=== PATIENT | female | born 1975 | race Hispanic/Latino ===

== ENCOUNTER 2019-09-09 08:26 | Day surgery (SDC) | payer BC ==
[2019-09-04 10:46] LABS: Hematocrit 37.9 % (36.0-45.0); Lymphocytes % 25.4 % (15.3-44.8); MPV 8.4 fL (7.6-11.3); RBC Red Blood Cell Count 4.34 M/uL (3.86-4.86)
[2019-09-04 10:48] LABS: Urine Appearance CLEAR; Urine Bilirubin NEGATIVE (NEG); Urine Blood NEGATIVE (NEG); Urine Color YELLOW; Urine Glucose NEGATIVE (NEG); Urine Protein NEGATIVE (NEG); Urine pH 6.5 (5.0-7.0)
[2019-09-04 10:50] LABS: Urine Microscopic Reflex NO UMIC
[~2019-09-09 08:26] MED LIST: Ringers Lactate 1,000 ML IV SCH; SCOPOLAMINE HYDROBROMIDE PATCH TD ONE
--- OUTSIDE RECORDS SUMMARY | 2019-09-09 08:28 | XMS REPORT ---
:1975 [facility] Address [address] [place] [address] Dr. Landry[address] [place] [id number] Care Team Providers Name Role Phone DR ANDREW PASCAL Unavailable Unavailable Problems This patient has no known problems. Allergies, Adverse Reactions, Alerts This patient has no known allergies or adverse reactions. Medications This patient has no known medications. Encounters Start End Encounter Admission Attending Care Care Encounter Date/Time Date/Time Type Type Clinicians Facility Department ID 2018-08-24 2018-08-24 Outpatient C MARIA G PASCAL [facility] [id number] 04:21:00 06:15:00 ANDREW Results Test Description Test Time Test Comments Text Results Atomic Results Result Comments URINE MONOCLONALFB 2018-08-24 05:27:00 Test Item Value Reference Range Comments PREG UR (test code=PGU) NEGATIVE NEGATIVE
[2019-09-09 08:45] LABS: Specific Gravity 1.025 (1.005-1.030)
[2019-09-09] MEDS ORDERED: Ringers Lactate 1,000 ML IV ONE ×4 (08:57→14:28)
[2019-09-09] MEDS ORDERED: SCOPOLAMINE HYDROBROMIDE PATCH TD ONE (08:57)
[2019-09-09] MEDS ORDERED: CEFAZOLIN/SWI 1gm 1 GM/10 ML SYR ONE (08:58)
[2019-09-09] MEDS ORDERED: CEFAZOLIN/SWI 2gm 2 GM/20 ML SYR ONE (08:58)
[2019-09-09] MEDS: NA CHLORIDE 0.9% IVP SCH ×3 (09:55→10:50)
[2019-09-09] MEDS: CEFAZOLIN IVP SCH ×3 (09:55→10:50)
[2019-09-09] MEDS: BUPIVACAINE 0.25% PF 30 ML VIAL ONE ×2 (09:56→11:09)
[2019-09-09] MEDS ORDERED: MIDAZOLAM HCL 2 MG/2 ML INJ ONE (09:59)
[2019-09-09] MEDS ORDERED: propofoL 200 MG/20 ML VIAL IV ONE (09:59)
[2019-09-09] MEDS ORDERED: GLYCOPYRROLATE 0.2 MG/ML SYR ONE (09:59)
[2019-09-09] MEDS ORDERED: FENTANYL CITR 250 MCG/5 ML ONE (09:59)
[2019-09-09] MEDS ORDERED: dexAMETHasone 10 MG/ML VIAL ONE (09:59)
[2019-09-09] MEDS ORDERED: LIDOCAINE 2% MPF 5 ML VIAL ONE (09:59)
[2019-09-09] MEDS ORDERED: ROCURONIUM 50 MG/5 ML VIAL IV ONE (09:59)
[2019-09-09] MEDS ORDERED: ONDANSETRON 4 MG/2 ML VIAL ONE (10:01)
[2019-09-09] MEDS ORDERED: KETOROLAC 30 MG/ML INJ ONE (13:09)
[2019-09-09] MEDS: HYDROMORPHONE HCL 1 MG/ML INJ ONE ×2 (14:18→14:23)
[2019-09-09] MEDS ORDERED: HYDROCODONE/APAP 5/325 MG TAB ONE (15:18)
[2019-09-09 16:54] VITALS: BP 153/83; TEMP 98.1; O2SAT 98
[2019-09-09] MEDS ORDERED: NA CHLORIDE 0.9% 500 ML ONE (17:29)
--- NOTE | 2019-09-23 09:44 | OP ---
Date of Procedure: 09/09/2019 Surgeon: Cece Vela MD Concession Attendant: Jessica Murry. Preoperative Diagnoses: Menorrhagia and dysmenorrhea, recurrent last the ablation. Postoperative Diagnoses: Menorrhagia and dysmenorrhea, recurrent last the ablation. Procedures Performed: Total laparoscopic hysterectomy, bilateral salpingectomy, lyses of adhesion, r ight ovarian cystectomy, and cystoscopy. Estimated Blood Loss: Minimal. Anesthesia: General endotracheal. Specimens: Uterus, tubes, and right ovarian cyst. Complications: No complications. Drains: Beebe catheter. Condition: Stable. Findings: About 2-3 cm right ovarian cyst and adhesions of the omentum to the anterior abdominal wal l and dense adhesions of the bladder, tube, uterus. The lyses of adhesions were released . Description Of Procedure: After informed consent, the patient was taken back to OR, placed in a supi ne fashion on operating table. General anesthesia given. She was placed in a dorsal lithotomy posit ion. 3 g of Ancef was given. SCDs were started. Abdomen, vulva, vagina and perineum were prepped a nd draped in a sterile fashion. Beebe was placed to drain the bladder and attached to cysto tubing f or retrograde filling. Speculum placed to expose the cervix. Anterior lip grasped with 2 Allis clam ps. The sound was placed to find the uterine cavity, the endometrial cavity. Once this was done, th e diagnostic vaginal manipulator was introduced and fixed in place with the speculum was r emoved. Allis clamps were removed. This area was draped. 1 cm infraumbilical incision was made with the scalpel using the open laparoscopy technique. The fas rishi was incised. She had abdominoplasties, so permanent sutures were encountered. These were cut, m ultiple layers of fascia were cut before getting into the peritoneal cavity. Once the scope was intr oduced, there were omental adhesions run in front of the trocar placement, a 5 mm left low er quadrant and right lower quadrant ports were placed under direct vision after injecting Marcaine a t the fascia and the skin. All were placed. The adhesions were taken down with the help of the LigaSure and systematically with push-spread technique making windows and the suprapubic 10-po rt was placed without any problems. The abdominal fascial closure with the fascia more sc ar and the slightly difficult to interpret. Once this was penetrated, no problems were encountered. On observation, there were dense adhesions of the bladder to the lower segment of the uterus. There were some omental adhesions to the lateral wall as well. All these were taken down with sharp dissec tion. Then, the peritoneum was raised below the level of the round ligament and the peritoneal windo w was opened up, creating a bladder flap, however, coming to the bladder that bladder had to be filled and drained to yaakov its borders and dissection was performed on the anterior vaginal wal l at the level of the vaginal cuff to open the bladder. A sharp dissection was performed to take the bladder adhesions down. Once the space behind adhesions was approached from the left side and then on the right side and join, then the adhesions of the bladder in the midline were taken down sharply with scissors as well as LigaSure. Once this was done, the bladder was reflected inferiorly and the vaginal wall was freed. Then, hysterectomy was started. The mesosalpinx was taken down, tube removed and utero-ovarian ligament, round ligament, broad ligame nt were all taken down, posterior leaf to the left uterosacral then broad ligament was taken down to skeletonize the vessels. On the right side, similar dissection was performed taking down the mesosal pinx tube, utero-ovarian ligament, round ligament, and the posterior broad ligament to the uterosacra l on the right side. Both ureters were identified from the pelvic brim to the ureteric tunnel and th ere was no anatomical distortion. There was no evidence of any endometriosis. Once the vessels were skeletonized on both sides, the vessels were taken medial to the circumference of the cup. Windows were created medial to the vessels and then bipolar basket tip was used first an d then the LigaSure to take down the vessels on the right side of the cardinal ligaments were taken d own on the opposite side. Resection was performed. Once the uterus was ready for colpotomy, monopol ar hook blade was used for circumferential colpotomy and the specimen pulled through the v agina. The remnants of the tube were removed, right ovarian cyst was removed with the LigaSure. The ovaries appeared to be viable and normal. There were left alone. Thorough irrigation suction probe was performed. Hemostasis secured at the vaginal cuff. The closur e with 0 PDS 2 simple stitches on both sides of the angle, then 3 [id number]-[id number] in the middle for excellent closure and support. Once this was done, thorough irrigation and suction was performed. N o evidence of electrical, mechanical, or thermal injury to the ureters or the bowel. Ports were oliva portia under direct vision. Gas was desufflated. Fascia at the umbilicus closed with the tag sutures, tied to each other at both ends and then suprapubic incision closed with the help of simple 0-Vicryl stitch at the fascial level. All the skin incisions closed with the help of 4-0 Monocryl. Instrumen t, needle, and sponge counts were correct at the end of the case. I performed a cystoscopy after rem oving the Beebe catheter to look at both ureteric orifices, there were strong jets of urine from both sides and there was no evidence of any bladder injury while taking the adhesions down. So, the blad arben was drained and normal catheterization was needed. She was recovered from anesthesia and taken t o PACU in stable condition. EBL was minimal. TYLER/KIMMIE Voice ID: [id number] Report ID: [id number]
== END 2019-09-09 18:27 | disposition home or self-care (01) ==
LOC: OR 08:26
PROVIDERS: ATTEND Obstetrics & Gynecology
PROC: 0UT74ZZ Resection of Bilateral Fallopian Tubes, Percutaneous Endoscopic Approach (ICD-10-PCS; 2019-09-09)
PROC: 0UB04ZZ Excision of Right Ovary, Percutaneous Endoscopic Approach (ICD-10-PCS; 2019-09-09)
PROC: 0TNB4ZZ Release Bladder, Percutaneous Endoscopic Approach (ICD-10-PCS; 2019-09-09)
PROC: 0UT94ZZ Resection of Uterus, Percutaneous Endoscopic Approach (ICD-10-PCS; principal; 2019-09-09 10:00)
DX: N92.1 Excessive and frequent menstruation with irregular cycle (principal); N94.5 Secondary dysmenorrhea; D25.9 Leiomyoma of uterus, unspecified; N80.0 Endometriosis of uterus; N83.11 Corpus luteum cyst of right ovary; N32.89 Other specified disorders of bladder; K66.0 Peritoneal adhesions (postprocedural) (postinfection); N83.8 Other noninflammatory disorders of ovary, fallopian tube and broad ligament; N70.11 Chronic salpingitis; D50.0 Iron deficiency anemia secondary to blood loss (chronic); K21.9 Gastro-esophageal reflux disease without esophagitis
CPT/HCPCS: 85025; 36415; 86900; 86850; 81025; 86901; 82947 ×2; 88307; 81003; 58571; 58662; 53899; J2704; J2250; J3010; J1100; J1170; J0690 ×2; J7120 ×4; J7040; J2405

== ENCOUNTER 2021-06-12 13:31 | Inpatient (IN) | payer OTHER ==
[2021-06-12 13:59] LABS: Absolute Lymphocytes (CBC) 2.5 K/uL (0.7-4.9); Basophils % 0.6 % (0-1.3); Hematocrit 36.5 % (36.0-45.0); Lymphocytes % 20.4 % (15.3-44.8); RBC Red Blood Cell Count 4.46 M/uL (3.86-4.86)
[2021-06-12 14:08] LABS: Protime INR 0.95
[2021-06-12] MEDS ORDERED: NITROGLYCERIN 0.4 MG/TAB SL ONE (14:10)
[2021-06-12] MEDS ORDERED: METOPROLOL TARTRATE 5 MG/5 ML INJ IV ONE (14:17)
--- NOTE | 2021-06-12 14:22 | RAD REPORT ---
EXAM DESCRIPTION: RAD - Chest Single View - 06/12/2021 2:04 pm CLINICAL HISTORY: CHEST PAIN COMPARISON: January 2016 TECHNIQUE: AP portable chest image was obtained 06/12/2021 2:04 pm . FINDINGS: Lungs are clear. Interstitial pattern matches comparison. Heart and vasculature are normal . No measurable pleural effusion and no pneumothorax. No acute bony abnormality seen. No acute aortic findings suspected. IMPRESSION: No acute cardiopulmonary process. No significant change from comparison study.
[2021-06-12 14:34] LABS: ALT/SGPT 36 U/L (12-78); AST/SGOT 23 U/L (15-37); Albumin 3.9 g/dL (3.4-5.0); Alkaline Phosphatase 131 U/L (45-117); BUN Blood Urea Nitrogen 15 mg/dL (7-18); Bicarbonate 23 mmol/L (21-32); Bilirubin Direct 0.1 mg/dL (0-0.2); Bilirubin Total 0.4 mg/dL (0.2-1.0); Glucose Level 223 mg/dL (74-106); Magnesium 1.7 mg/dL (1.8-2.4); NT PRO-BNP 40 pg/mL (<125); Potassium 3.3 mmol/L (3.5-5.1); Protein, Total 7.5 g/dL (6.4-8.2); Sodium Level 138 mmol/L (136-145); Troponin (Emerg Dept Use Only) < 0.02 ng/mL (0.0-0.045)
--- NOTE | 2021-06-12 16:33 | RAD REPORT ---
EXAM DESCRIPTION: CT - Chest For Pe Angio - 06/12/2021 4:17 pm CLINICAL HISTORY: CHEST PAIN COMPARISON: Chest Single View dated 06/12/2021 TECHNIQUE: Dynamically enhanced 3 mm thick images of the chest were obtained during administration o f approximately 150mL Isovue 370 IV contrast. Coronal and oblique MIP reconstruction images were gene rated and reviewed. Exam utilizes a protocol to evaluate the pulmonary arterial tree. All CT scans are performed using dose optimization technique as appropriate and may include automated exposure control or mA/KV adjustment according to patient size. FINDINGS: No pulmonary emboli are identified. The aorta as imaged shows no acute or suspicious finding. No pericardial thickening or effusion. No infiltrate or mass in the lung parenchyma. No pleural effusion or pleural thickening. No mediastinal or hilar suspicious masses. No chest wall masses or abnormal axillary lymphadenopathy. IMPRESSION: No pulmonary emboli identified. Lung haq are clear. No other significant or suspicious findings.
[2021-06-12] MEDS ORDERED: POTASSIUM 25 MEQ EFFERV TAB ONE (16:57)
[2021-06-12] MEDS ORDERED: MAGNESIUM SULFATE 1 gm IVPB 1 GM/100 ML BAG IV ONE (16:58)
--- NOTE | 2021-06-12 17:06 | EDPHYS ---
Physician Documentation [facility] Name: Josefa Michel Age: 45 yrs Sex: Female : 1975 Arrival Date: 06/12/2021 Time: 13:35 Bed 13 Private MD: ED Physician Dennis Martin HPI: 06/12 13:39 This 45 yrs old Female presents to ER via EMS with complaints of Chest pain. pm1 13:39 The patient or guardian reports chest pain that is located primarily in the left pm1 breast. Onset: 1 hour(s) ago. The pain radiates to the left shoulder, left neck, left back. Associated signs and symptoms: Pertinent positives: diaphoresis, nausea, vomiting, Pertinent negatives: abdominal pain, shortness of breath. The chest pain is described as a pressure. Duration: The patient or guardian reports a single episode, that is still ongoing. Modifying factors: The symptoms are alleviated by NTG, Mildly by EMS the symptoms are aggravated by nothing. Severity of pain: in the emergency department the pain is a 5 / 10. EMS care prior to arrival includes: aspirin, nitroglycerin, x 1, with partial relief of the chest pain. The patient has not experienced similar symptoms in the past. The patient has not recently seen a physician. Historical: - Allergies: 13:47 No Known Allergies; tr6 - Home Meds: 13:47 Metformin Oral [Active]; Zoloft Oral [Active]; Keflex Oral [Active]; tr6 - PSHx: 13:47 None; tr6 - Immunization history:: Adult Immunizations up to date, Client reports receiving the 2nd dose of the Covid vaccine. - Social history:: Smoking status: unknown. ROS: 13:39 Constitutional: Negative for fever, chills, and weight loss. pm1 13:39 Back: Negative for injury and pain, MS/Extremity: Negative for injury and deformity, Skin: Negative for injury, rash, and discoloration, Neuro: Negative for headache, weakness, numbness, tingling, and seizure. 13:39 Cardiovascular: Positive for chest pain, palpitations, Negative for edema. 13:39 Respiratory: Negative for cough, shortness of breath. 13:39 Abdomen/GI: Positive for nausea and vomiting, Negative for abdominal pain, diarrhea, constipation. 13:39 All other systems are negative. Exam: 13:39 Constitutional: This is a well developed, well nourished patient who is awake, alert, pm1 and in no acute distress. Head/Face: Normocephalic, atraumatic. Chest/axilla: Normal chest wall appearance and motion. Nontender with no deformity. No lesions are appreciated. 13:39 Skin: Warm, dry with normal turgor. Normal color with no rashes, no lesions, and no evidence of cellulitis. MS/ Extremity: Pulses equal, no cyanosis. Neurovascular intact. Full, normal range of motion. 13:39 Cardiovascular: Exam negative for acute changes, Rate: tachycardic, Rhythm: regular, Pulses: no pulse deficits are appreciated, Heart sounds: normal, Edema: is not appreciated. 13:39 Respiratory: Exam negative for acute changes, respiratory distress, shortness of breath, Breath sounds: are clear throughout. 13:39 Abdomen/GI: Inspection: obese Palpation: abdomen is soft and non-tender, in all quadrants. 13:39 Neuro: Exam negative for acute changes, Orientation: is normal, Mentation: is normal, Motor: is normal, moves all fours. Vital Signs: 13:41 BP 185 / 84; Pulse 115; Resp 18; Temp 98.8(O); Pulse Ox 100% on R/A; Pain 5/10; tr6 13:47 Weight 101.6 kg; Height 5 ft. 1 in. (154.94 cm); tr6 13:57 BP 146 / 85; Pulse 96; Resp 20; Pulse Ox 99% ; tr6 14:00 BP 131 / 79; Pulse 88; Resp 18; Pulse Ox 98% on R/A; tr6 15:00 BP 125 / 68; Pulse 84; Resp 18; Pulse Ox 99% on R/A; tr6 13:47 Body Mass Index 42.32 (101.60 kg, 154.94 cm) tr6 MDM: 13:37 Patient medically screened. pm1 17:04 Data reviewed: vital signs. Data interpreted: Pulse oximetry: on room air is 99 %. pm1 Interpretation: normal. Counseling: I had a detailed discussion with the patient and/or guardian regarding: the historical points, exam findings, and any diagnostic results supporting the discharge/admit diagnosis, lab results, radiology results, the need for further work-up and treatment in the hospital. 17:08 Physician consultation: Louis Arvizu MD regarding admission, patient's condition, and pm1 will see patient tomorrow, Serial cardiac enzymes, ASA 81 mg PO daily, metoprolol 25 mg PO BID. No cardiology consultation at the moment, will evaluate the patient first. 06/12 13:36 Order name: Basic Metabolic Panel; Complete Time: 15:37 tr6 06/12 13:36 Order name: CBC with Diff; Complete Time: 14:32 tr6 06/12 13:36 Order name: LFT's; Complete Time: 15:37 tr6 06/12 13:36 Order name: Magnesium; Complete Time: 15:37 tr6 06/12 13:36 Order name: NT PRO-BNP; Complete Time: 15:37 tr6 06/12 13:36 Order name: PT-INR; Complete Time: 14:32 tr6 06/12 13:36 Order name: Troponin (emerg Dept Use Only); Complete Time: 15:37 tr6 06/12 13:36 Order name: XRAY Chest (1 view); Complete Time: 14:32 tr6 06/12 13:54 Order name: Thyroid Stimulating Hormone; Complete Time: 15:37 EDMS 06/12 14:04 Order name: Glucose, Ancillary Testing EDWI 06/12 14:04 Order name: Glucose, Ancillary Testing; Complete Time: 14:32 EDMS 06/12 18:04 Order name: SARS-COV-2 RT PCR; Complete Time: 18:10 EDMS 06/12 13:36 Order name: EKG; Complete Time: 13:37 tr6 06/12 13:36 Order name: Cardiac monitoring; Complete Time: 13:46 tr6 06/12 13:36 Order name: EKG - Nurse/Tech; Complete Time: 13:46 tr6 06/12 13:36 Order name: IV Saline Lock; Complete Time: 13:41 tr6 06/12 13:36 Order name: Labs collected and sent; Complete Time: 13:46 tr6 06/12 13:36 Order name: O2 Per Protocol; Complete Time: 13:46 tr6 06/12 13:36 Order name: O2 Sat Monitoring; Complete Time: 13:46 tr6 06/12 15:38 Order name: CT Chest For PE Angio; Complete Time: 16:57 pm1 Administered Medications: 13:54 Drug: Nitroglycerin 0.4 mg Route: Sublingual; tr6 14:12 Follow up: Response: Pain is decreased tr6 13:58 Drug: Metoprolol 5 mg Route: IVP; Site: left antecubital; tr6 14:12 Follow up: Response: No adverse reaction tr6 16:39 Drug: Potassium Effervescent Tablet 50 mEq Route: PO; oh 19:53 Follow up: Response: No adverse reaction bs2 16:40 Drug: Magnesium Sulfate 1 grams Route: IVPB; Infused Over: 1 hrs; Site: right oh antecubital; 19:53 Follow up: IV Status: Completed infusion bs2 Disposition Summary: 06/12/21 17:05 Hospitalization Ordered Hospitalization Status: Observation pm1 Provider: Louis Arvizu pm1 Location: Telemetry/MedSurg (observation) pm1 Condition: Stable pm1 Problem: new pm1 Symptoms: have improved pm1 Bed/Room Type: Standard pm1 Room Assignment: 229(06/12/21 18:55) tt3 Diagnosis - Chest pain, unspecified pm1 Forms: - Medication Reconciliation Form pm1 - SBAR form pm1 Addendum: 06/14/2021 10:06 Co-signature as Attending Physician, Dennis Martin MD I agree with the assessment and k dr plan of care. Signatures: Dispatcher [employer] EDMS Dennis Martin MD MD [facility] Mac Enriquez NP SHREDDER TENDER PEAT pm1 Yong Fragoso tt3 Sulma Georges RN RN tr6 Dante Enrique RN RN oh Smith, Bridget RN bs2 Corrections: (The following items were deleted from the chart) 06/12 13:54 13:44 THYROID STIMULAT HORMONE+C.LAB.BRZ ordered. EDMS EDMS 17:14 16:15 CORONAVIRUS+MR.LAB.BRZ ordered. EDMS EDMS 18:55 17:05 pm1 tt3
--- NOTE | 2021-06-12 17:06 | ER ---
[facility]urse's Notes [facility] Name: Josefa Michel Age: 45 yrs Sex: Female : 1975 Arrival Date: 06/12/2021 Time: 13:35 Bed 13 Private MD: Diagnosis: Chest pain, unspecified Presentation: 06/12 13:35 Chief complaint: EMS states: CP radiating to left shoulder, +nausea. pt received 324 tr6 ASA, 0.4 NTG, and zofran en route. Coronavirus screen: At this time, unable to obtain information related to travel outside the [place] Ebola Screen: No symptoms or risks identified at this time. Initial Sepsis Screen: Does the patient meet any 2 criteria? No. Patient's initial sepsis screen is negative. Does the patient have a suspected source of infection? No. Patient's initial sepsis screen is negative. Risk Assessment: Do you want to hurt yourself or someone else? Patient reports no desire to harm self or others. 13:35 Method Of Arrival: EMS: [facility] tr6 13:41 Acuity: DAXA 3 tr6 13:47 Onset of symptoms was June 12, 2021. tr6 Triage Assessment: 13:47 General: Appears uncomfortable, obese, Behavior is cooperative, appropriate for age, tr6 anxious. Pain: Complains of pain in chest Pain radiates to left shoulder. EENT: No deficits noted. Neuro: No deficits noted. Cardiovascular: Reports chest pain, diaphoresis, nausea, palpitations, vomiting, Patient's skin is warm and dry. Rhythm is regular. Respiratory: No deficits noted. GI: No deficits noted. : No deficits noted. Derm: No deficits noted. Musculoskeletal: No deficits noted. Historical: - Allergies: 13:47 No Known Allergies; tr6 - Home Meds: 13:47 Metformin Oral [Active]; Zoloft Oral [Active]; Keflex Oral [Active]; tr6 - PSHx: 13:47 None; tr6 - Immunization history:: Adult Immunizations up to date, Client reports receiving the 2nd dose of the Covid vaccine. - Social history:: Smoking status: unknown. Screenin:35 Abuse screen: Denies threats or abuse. Denies injuries from another. Nutritional tr6 screening: No deficits noted. Tuberculosis screening: No symptoms or risk factors identified. Fall Risk None identified. Assessment: 13:50 Reassessment: daughter at bedside. tr6 14:05 Reassessment: pt reports that her CP has improved greatly after 2 NTG (1 in ambulance tr6 and 1 given in ED). pt will not like an additional dose at this time, but will let this RN know. Will continue to monitor. Patient states symptoms have improved. 14:11 Cardiovascular: Rhythm is sinus rhythm. tr6 15:15 Reassessment: Patient and/or family updated on plan of care and expected duration. Pain tr6 level reassessed. Patient is alert, oriented x 3, equal unlabored respirations, skin warm/dry/pink. 15:37 Reassessment: Patient and/or family updated on plan of care and expected duration. Pain tr6 level reassessed. Patient is alert, oriented x 3, equal unlabored respirations, skin warm/dry/pink. Patient states feeling better. Patient states symptoms have improved. Vital Signs: 13:41 BP 185 / 84; Pulse 115; Resp 18; Temp 98.8(O); Pulse Ox 100% on R/A; Pain 5/10; tr6 13:47 Weight 101.6 kg; Height 5 ft. 1 in. (154.94 cm); tr6 13:57 BP 146 / 85; Pulse 96; Resp 20; Pulse Ox 99% ; tr6 14:00 BP 131 / 79; Pulse 88; Resp 18; Pulse Ox 98% on R/A; tr6 15:00 BP 125 / 68; Pulse 84; Resp 18; Pulse Ox 99% on R/A; tr6 13:47 Body Mass Index 42.32 (101.60 kg, 154.94 cm) tr6 Vitals: 15:00 Cardiac Rhythm Assessment Regular Sinus rhythm. tr6 ED Course: 13:35 Patient arrived in ED. tr6 13:35 Sulma Georges, RN is Primary Nurse. tr6 13:35 Patient has correct armband on for positive identification. Placed in gown. Bed in low tr6 position. Call light in reach. Side rails up X 1. pvc monitor on. Pulse ox on. NIBP on. Door closed. Noise minimized. Visitors limited. Lights dimmed. Moved to private room. Diet: Patient is NPO. 13:37 Mac Enriquez NP is PHCP. pm1 13:37 Dennis Martin MD is Attending Physician. pm1 13:43 Triage completed. tr6 13:45 Initial lab(s) drawn, by me, sent to lab. EKG done, by ED staff, reviewed by Dennis Martin MD. 13:50 Resting quietly. Awaiting lab results. tr6 13:50 Patient placed in an exam room, on a stretcher, on library monitor, on pulse oximetry, tr6 Emesis basin given. EKG completed in triage. Results shown to MD. 13:50 No provider procedures requiring assistance completed. Maintain EMS IV. Dressing tr6 intact. Good blood return noted. Site clean \T\ dry. Gauge \T\ site: 20 L AC. Patient maintains SpO2 saturation greater than 95% on room air. 14:04 XRAY Chest (1 view) In Process Unspecified. EDMS 16:17 CT Chest For PE Angio In Process Unspecified. EDMS 17:04 Louis Arvizu MD is Hospitalizing Provider. pm1 17:21 Dante Enrique, NARESH is Primary Nurse. bp 19:53 Patient admitted, IV remains in place. bs2 Administered Medications: 13:54 Drug: Nitroglycerin 0.4 mg Route: Sublingual; tr6 14:12 Follow up: Response: Pain is decreased tr6 13:58 Drug: Metoprolol 5 mg Route: IVP; Site: left antecubital; tr6 14:12 Follow up: Response: No adverse reaction tr6 16:39 Drug: Potassium Effervescent Tablet 50 mEq Route: PO; oh 19:53 Follow up: Response: No adverse reaction bs2 16:40 Drug: Magnesium Sulfate 1 grams Route: IVPB; Infused Over: 1 hrs; Site: right oh antecubital; 19:53 Follow up: IV Status: Completed infusion bs2 Outcome: 17:05 Decision to Hospitalize by Provider. pm1 19:52 Admitted to Med/surg accompanied by tech, via wheelchair, room 229, with chart, Report bs2 called to Bandar INFANTE 19:52 Condition: improved 19:52 Instructed on the need for admit. 20:16 Patient left the ED. kc4 Signatures: Dispatcher [employer] EDMS Mac Enriquez NP GEOLOGY SCIENTIST pm1 Brown [place] RN RN Janet Johns kj1 Sulma Georges RN RN tr6 Luciana Stallworth RN RN bs2 Jaimee Kidd kc4 aDnte Enrique RN RN oh Corrections: (The following items were deleted from the chart) 13:43 13:35 Chief complaint: EMS states: CP radiating to left shoulder, +nausea tr6 tr6
[2021-06-12] MEDS ORDERED: ONDANSETRON 4 MG/2 ML VIAL IV PRN (18:17)
[2021-06-12] MEDS: METOPROLOL TAR 25 MG TAB PO SCH (18:17)
[2021-06-12] MEDS ORDERED: MORPHINE 4 MG/ML SYR IV PRN (18:17)
[2021-06-12 18:43] VITALS: BMI 42.1
[2021-06-12] MEDS ORDERED: METOPROLOL TAR 25 MG TAB ONE (19:10)
[2021-06-13] MEDS: METOPROLOL TAR 25 MG TAB PO SCH ×2 (05:34→17:13)
[2021-06-13 06:02] LABS: Absolute Lymphocytes (CBC) 2.4 K/uL (0.7-4.9); Basophils % 0.9 % (0-1.3); Hematocrit 35.7 % (36.0-45.0); Lymphocytes % 27.1 % (15.3-44.8); MPV 8.2 fL (7.6-11.3); RBC Red Blood Cell Count 4.31 M/uL (3.86-4.86)
[2021-06-13 06:14] LABS: BUN Blood Urea Nitrogen 14 mg/dL (7-18); Bicarbonate 27 mmol/L (21-32); Glucose Level 144 mg/dL (74-106); Potassium 4.1 mmol/L (3.5-5.1); Sodium Level 140 mmol/L (136-145)
[2021-06-13] MEDS ORDERED: D50W 25 GM/50 ML SYRINGE IV PRN (07:56)
[2021-06-13] MEDS ORDERED: GLUCAGON 1 MG/VIAL IM PRN (07:56)
[2021-06-13] MEDS: ASPIRIN EC 81 MG TAB PO SCH (07:58)
[2021-06-13] MEDS ORDERED: SERTRALINE HCL 100 MG TAB PO SCH ×2 (09:00→21:00)
[2021-06-13] MEDS ORDERED: ENOXAPARIN 40 MG/0.4 ML SQ SCH (09:00)
[2021-06-13] MEDS: FLUTICASONE 50MCG NASAL SPRAY NAS SCH ×2 (09:35→20:41)
[2021-06-13] MEDS: PANTOPRAZOLE 40MG TABLET PO SCH (09:36)
--- NOTE | 2021-06-13 09:58 | HP ---
Date of Admission: 06/13/2021 Chief Complaint: Chest pain. History Of Present Illness: This is a 45-year-old very pleasant female patient who was doing fine in her normal usual state of health until yesterday. She was cooking at home and all of a sudden she started to have feeling of heart racing feeling and she checked her blood pressure. It was 220/115 and pulse rate was 115. She started to have some left-sided precordial area chest pain. She is not able to describe exact nature of the pain, but her pain did radiate to her left scapular region and she had some associated tingling numbness type of feeling in her tongue and she had episode of nausea, vomiting, and sweating associated with this pain. She called ambulance, and she was brought into emergency room. After she was evaluated in the ER, she was admitted to the hospital. The patient received sublingual nitroglycerin, aspirin, and 1 dose of IV metoprolol and her condition has remained stable since that time. She has not had any recurrence of chest pain or any other symptoms since admission. There is no prior history of similar type of symptoms. Allergies: TO PSEUDOEPHEDRINE CAUSING PALPITATION. Medications: Atorvastatin 20 mg daily, fluticasone nasal spray 1 spray each nostril 2 times a day, metformin 500 mg daily, omeprazole 40 mg p.o. daily, and sertraline 150 mg daily. Review of Systems: Cardiovascular: As mentioned above. GI: As mentioned above. All other systems reviewed and negative. Past Medical History: Significant for allergic rhinitis, type 2 diabetes mellitus, mixed hyperlipidemia, iron deficiency anemia. Past Surgical History: Surgery for varicose veins done this year, gastric sleeve surgery in the past, tubal ligation and hysterectomy. Family History: Father with hyperlipidemia and hypertension. Mother with hypertension and hyperlipidemia also. Social History: Negative for smoking and alcohol use. Immunization History: The patient had her first dose of COVID-19 vaccine on December 21, 2020 and second dose on 01/18/2021. Physical Examination: Vital Signs: Last vital signs; temperature 97.7, pulse 56, respiratory rate 18, blood pressure 111/58, oxygen saturation 100% on room air. Height 5 feet 1 inch, weight 223 pounds. General: Awake, alert, oriented, not in distress. HEENT: Head atraumatic, normocephalic. Conjunctivae nonerythematous. Sclerae white. Mouth, no thrush or edema noted. Ears/Nose, no mass, lesion, discharge noted. Neck: Supple. No JVD, lymph nodes, bruit, thyromegaly noted. Lungs: Bilateral good equal air entry. Clear to auscultation. No rhonchi. No rales. Heart: Normal heart sounds, no murmur or gallop. Abdomen: Soft, bowel sounds normal. No guarding, rigidity, tenderness, mass, hepatosplenomegaly, distention, or bruit noted. Extremities: No leg edema. No calf tenderness. Skin: No rash, ulcer, cellulitis. Lymphatics: No lymph node enlargement in neck, supraclavicular, infraclavicular region. Neuro: No focal neurological deficit. Chest: Unremarkable. External Genitalia: Deferred. Rectal: Deferred. Laboratory Data: Yesterday; white count 12.1, hemoglobin 12.2, platelets 287. This morning; white count 9, hemoglobin 11.9, platelets 265. INR 0.95. Yesterday; sodium 138, potassium 3.3, chloride 108, bicarb 23, BUN 15, creatinine 0.69, glucose 223, magnesium 1.7. Liver function tests unremarkable. Troponin less than 0.02 on the first set, second set 0.02, third set 0.03. TSH 2.38. This morning; sodium 140, potassium 4.1, chloride 110, bicarb 27, BUN 14, creatinine 0.56, glucose 140. COVID-19 test negative. Chest x-ray, no acute cardiopulmonary changes. CAT scan of the chest per PE protocol was negative for pulmonary embolism. No acute lung findings. EKG shows sinus tachycardia with nonspecific T-wave changes. Impression: 1. Unstable angina. 2. Type 2 diabetes mellitus. 3. Mixed hyperlipidemia. 4. Iron-deficiency anemia. 5. Allergic rhinitis. Plan: Admit the patient to hospital for further evaluation and management of this problem. The patient is appropriate for inpatient and is expected to spend 2 midnights in hospital. We will continue aspirin and metoprolol per order. We will start her on Lovenox 40 mg subcutaneous injection daily as of this morning. We will increase dose of atorvastatin from 20 mg to 40 mg at bedtime and consult Cardiology. I have called and discussed details with Dr. Mcknight. I have discussed with the patient regarding option of doing cardiac catheterization for further evaluation and management that would be my suggestion to her. She understands and agrees with that and I have discussed details with elementary librarian as well, who will evaluate and help us with further evaluation and management of this problem. We will keep her n.p.o. after midnight and also order echo with Doppler to be done on her tomorrow. Diabetes will be managed with sliding scale insulin at this point. LEVON/MODL Voice ID: [id number] MTDD
[2021-06-13] MEDS: INSULIN -REGULAR HUMAN 50 UNIT/0.5 ML ML SQ SCH ×3 (11:30→20:42)
[2021-06-13] MEDS ORDERED: ATORVASTATIN 40 MG TAB PO SCH (21:00)
[2021-06-14] MEDS: METOPROLOL TAR 25 MG TAB PO SCH (06:18)
[2021-06-14] MEDS: ASPIRIN EC 81 MG TAB PO SCH (06:18)
[2021-06-14] MEDS: INSULIN -REGULAR HUMAN 50 UNIT/0.5 ML ML SQ SCH ×2 (07:30→11:30)
[2021-06-14] MEDS: FLUTICASONE 50MCG NASAL SPRAY NAS SCH (09:00)
[2021-06-14] MEDS: PANTOPRAZOLE 40MG TABLET PO SCH (09:00)
[2021-06-14] MEDS ORDERED: HEPA 1000U/500MLS 1,000 UNIT/500 ML BAG IV ONE (09:13)
--- NOTE | 2021-06-14 09:22 | CON ---
Date of Consultation: 06/13/2021 Reason For Consultation: Unstable angina. History Of Present Illness: Ms. Michel is 45-year-old woman, who has a history of hypertension, dys lipidemia, diabetes, gastroesophageal reflux disease, and depression. with severe hyperte nsion over 200, left facial numbness, left arm numbness and pain, and then chest pain, it radiated to the neck with shortness of breath and diaphoresis but no nausea, vomiting, PND, orthopnea, pedal gunner ma, palpitations, or syncope. Symptoms occurred while she was physically active. Dr. Arvizu and I had determined that she had unstable angina. Potassium 3.3. Chest x-ray was negative. CT was negative . Glucose was 223, potassium 3.3. Troponin was negative. Past Medical History: As stated above. Allergies: NONE. Review of Systems: Negative. Social History: Negative. Family History: Negative. Medications: Include Lipitor, metformin, Zoloft, and Prilosec. Physical Examination: Vital Signs: Stable, afebrile. HEENT: Negative. Neck: Supple with no bruit. Chest: Clear. Cardiac: Revealed a regular rhythm and rate. No murmurs, gallops, or rubs. Abdomen: Benign. Extremities: Revealed no clubbing, cyanosis, or edema. Diagnostic Data: As stated earlier. EKG showed nonspecific changes. Impression And Plan: This is a 45-year-old, admitted diabetes, hypertension, dyslipidemia, and symptoms consistent with unstable angina, although that could certainly be related to hypertensi ve crisis as well. Nevertheless, comfortable with her going to an echocardiogram and I th ink she needs to have a left heart catheterization to define her coronary anatomy. She understands t he risks and the benefits of the procedure and she agreed to proceed. CHRIS/KIMMIE Voice ID: [id number] Report ID: [id number]
[2021-06-14] MEDS ORDERED: NA CHLORIDE 0.9% 500 ML ONE (09:35)
[2021-06-14] MEDS ORDERED: LIDOCAINE 1% 20 ML MDV ONE (10:00)
[2021-06-14] MEDS ORDERED: ATROPINE SULF 1 MG/10 ML SYR IV ONE (10:18)
[2021-06-14] MEDS ORDERED: MIDAZOLAM HCL 2 MG/2 ML INJ ONE ×2 (10:18→10:39)
[2021-06-14] MEDS ORDERED: FENTANYL CITR 100 MCG/2 ML ONE (10:18)
[2021-06-14] MEDS ORDERED: NA CHLORIDE 0.9% 0 ML ONE (10:19)
[2021-06-14 10:33] VITALS: TEMP 97.2
--- NOTE | 2021-06-14 10:45 | OP ---
Date of Procedure: 06/14/2021 Surgeon: Bentley Mcknight MD Slab Installer: Mr. Perez Park. Procedure: Left heart catheterization, selective coronary arteriogram. Indication: Unstable angina. Ms. Michel is 45 years old, patient of Dr. Arvizu, came in with unstabl e angina symptoms. She had diabetes, obesity, hypertension, dyslipidemia, gastroesophageal reflux di sease. Symptoms were pretty classic for unstable angina. Procedure In Detail: Brought to the recyclable materials collector today on 06/14/2021, prepped and draped in the routine sterile fashion. Given Versed and fentanyl for sedation. A 6-Mohawk sheath introduced in the right common femoral artery successfully. Angiography there was normal. Angio-Seal was used to close the case. Diagnostic catheterization was used using Claudy catheter left and right. A JR4 cannulated t he left main and JR4 cannulated the right main. She was found to have normal coronaries. There were no complications. Blood Loss: 5 mL. Anesthesia: Total conscious sedation 45 minutes. Postoperative Diagnosis: Chest pain, normal coronaries. Plan: Plan is for medical therapy for her blood pressure, dyslipidemia, and diabetes. Case will be discussed with Dr. Arvizu. The patient will stay in the hospital for 2 hours after bedrest and she will go home today. CHRIS/KIMMIE Voice ID: [id number] Report ID: [id number]
[2021-06-14 11:15] VITALS: O2SAT 100
[2021-06-14 13:21] VITALS: BP 115/54
--- NOTE | 2021-06-15 06:54 | DS ---
Date of Discharge: 06/14/2021 Physical Examination: HEENT: Unremarkable. Lungs: Clear to auscultation. Heart: Sounds normal. Abdomen: Soft. Bowel sounds normal. No guarding, rigidity, tenderness, or distention. Extremities: No leg edema. Disposition: Discharged to go home. Laboratory Data: Upon admission; white count 12.1, hemoglobin 12.2, platelets 287. Yesterday; repeat white count 9, hemoglobin 11.9, platelets 265. Upon admission; sodium 138, potassium 3.3, chloride 108, bicarb 23, BUN 15, creatinine 0.69, glucose 223. Liver function tests unremarkable. Magnesium 1.7. First troponin less than 0.02, second troponin 0.02, third troponin 0.03. TSH 2.38. Total cholesterol 144, triglyceride 167, LDL 70, HDL 41. Hospital Course: A 45-year-old pleasant female patient, admitted to the hospital with chest pain complaints. Please see dictated H and P for more information. After the patient was evaluated in the emergency room, she was admitted to the hospital. I was concerned about unstable angina. She was given aspirin and nitroglycerin as well as Lopressor in the emergency room. After her admission to the hospital, she remained asymptomatic. Her aspirin and metoprolol were continued. We also started her on Lovenox 40 mg subcutaneous injection daily. Cardiology consultation was obtained from Dr. Mcknight. Echo with doppler was ordered today. Dr. Mcknight took her to cardiac cath and informed me that the patient had normal coronary angiogram and after the procedure, the patient was discharged to go home in stable condition. Discharge Medications And Instructions: 1. Continue all prior home medications. 2. Take metoprolol 25 mg, take 1 tablet by mouth 2 times a day. 3. Follow up at my office this coming or and the patient to call for appointment. Final Diagnoses: 1. Chest pain. 2. Hypertension. 3. Anemia, unspecified. 4. Type 2 diabetes mellitus. 5. Mixed hyperlipidemia. 6. Iron deficiency anemia. 7. Allergic rhinitis. 8. Hypokalemia. LEVON/MODL Voice ID: [id number] Report ID: [id number] [facility]OS[facility]ITALKathia
== END 2021-06-14 15:00 | disposition home or self-care (01) | DRG 287 ==
LOC: ER 13:31 → ERHOLD 17:32 → 2ND 19:14 → OBSVTOIN 06-13 07:56
PROVIDERS: ADMIT Internal Medicine; ATTEND Internal Medicine
PROC: B201YZZ Plain Radiography of Multiple Coronary Arteries using Other Contrast (ICD-10-PCS; principal; 2021-06-14)
DX: R07.9 Chest pain, unspecified (principal); Z68.41 Body mass index [BMI] 40.0-44.9, adult; E87.6 Hypokalemia; I10 Essential (primary) hypertension; D64.9 Anemia, unspecified; E11.9 Type 2 diabetes mellitus without complications; E78.2 Mixed hyperlipidemia; D50.9 Iron deficiency anemia, unspecified; J30.9 Allergic rhinitis, unspecified; E66.9 Obesity, unspecified; Z20.822 Contact with and (suspected) exposure to COVID-19
CPT/HCPCS: 36415; 71045; 71275; 80048; 80061; 80076; 82947; 83735; 83880; 84443; 84484; 85025; 85610; 93005; 93454; 96365; 96366; 96375; 99285; C1760; C1893; G0378; J0583; J1644; J1650; J2250; J3010; J3475; J7040; Q9967; U0003

== ENCOUNTER 2024-07-14 17:45 | Emergency (ER) | payer OTHER, SELFPAY ==
[2024-07-14 18:17] LABS: Absolute Basophils 0.1 K/uL (0-0.5); Absolute Eosinophils 0.1 K/uL (0-0.5); Absolute Lymphocytes (CBC) 2.3 K/uL (0.7-4.9); Absolute Monocytes 0.8 K/uL (0.1-1.3); Absolute Neutrophil 3.8 K/uL (1.8-8.0); Basophils % 0.9 % (0-1.3); Eosinophils % 1.2 % (0-4.4); Hematocrit 33.5 % (36.0-45.0); Lymphocytes % 32.9 % (15.3-44.8); MCH 25.4 pg (27.0-35.0); MCHC 32.9 g/dL (32.0-36.0); MCV 77.3 fL (80-100); MPV 7.6 fL (7.6-11.3); Monocytes % 10.7 % (3.3-12.3); Neutrophils % 54.3 % (41.7-73.7); Nucleated Red Blood Cells % 0.1 % (0-0); Platelets 311 thou/uL (152-406); RBC Red Blood Cell Count 4.33 M/uL (3.86-4.86); Red Cell Distribution Width 17.1 % (12.1-15.2)
--- NOTE | 2024-07-14 18:33 | RAD REPORT ---
EXAMINATION: ONE VIEW CHEST XR CLINICAL INDICATION: Female, 49 years old.CHEST PAIN TECHNIQUE: 1 View, AP supine, X-ray of the chest was performed. [id number]. COMPARISON: 06/12/2021 FINDINGS: Lungs and pleura: Clear lungs. No effusion. Heart and mediastinum: Normal heart size. Unremarkable mediastinal contours. Osseous structures: No acute abnormality. Tubes/lines: None Other: None. IMPRESSION: No acute intrathoracic abnormality.
[2024-07-14 18:38] LABS: ALT/SGPT 36 U/L (13-56); AST/SGOT 21 U/L (15-37); Albumin 3.7 g/dL (3.4-5.0); Alkaline Phosphatase 128 U/L (45-117); Anion Gap 7.6 mEq/L (5.0-15.0); BUN Blood Urea Nitrogen 16 mg/dL (7-18); Bicarbonate 25 mEq/L (21-32); Bilirubin Total 0.3 mg/dL (0.2-1.0); Globulin 3.7 g/dL (2.3-3.5); Glomerular Filtration Rate 95 ml/min (=/>90); Glucose Level 68 mg/dL (74-106); Lipase 34 U/L (13-75); Magnesium 1.8 mg/dL (1.6-2.4); Potassium 3.6 mEq/L (3.5-5.1); Protein, Total 7.4 g/dL (6.4-8.2); Sodium Level 140 mEq/L (136-145); Troponin High Sensitivity 25.8 pg/mL (<58.9)
[2024-07-14 18:42] LABS: Bilirubin Direct < 0.2 mg/dL (0-0.2); Bilirubin Indirect, Calculated 0.1 mg/dL (0.2-0.8)
[2024-07-14 18:50] LABS: Specific Gravity 1.014 (1.005-1.030); Sqamous Epithelial <5 /HPF (None Seen); Urine Bacteria <20 /HPF (<20); Urine Bilirubin NEGATIVE (Negative); Urine Blood Trace (Negative); Urine Clarity Turbid (Clear); Urine Color Light-Yellow (Yellow); Urine Crystals Unidentified Few /HPF (None Seen); Urine Culture Reflex Order NOT NEEDED; Urine Glucose NEGATIVE (Negative); Urine Ketones NEGATIVE (Negative); Urine Micro Reflex YN NO BILL MICROSCOPIC; Urine Mucus Slight /HPF (None Seen); Urine Nitrite NEGATIVE (Negative); Urine Protein NEGATIVE (Negative); Urine RBC <5 /HPF (None Seen); Urine Urobilinogen Normal (Normal); Urine WBC <5 /HPF (<5); Urine WBC Clump Rare /HPF (None Seen); Urine Yeast (Budding) Trace /HPF (None Seen)
[2024-07-14 18:51] LABS: Specific Gravity 1.014 (1.005-1.030)
[2024-07-14] MEDS ORDERED: HYDROCORTISONE SUC 100 MG INJ ONE (19:50)
--- NOTE | 2024-07-14 20:46 | RAD REPORT ---
EXAMINATION: CT ABDOMEN AND PELVIS WITH CONTRAST CLINICAL INDICATION: Female, 49 years old.ABD PAIN TECHNIQUE: CT abdomen and pelvis was performed, after the administration of IV contrast, as per [facility]. Axial, sagittal and coronal reconstructions were obtained. One or more of the following dose reduction techniques were used: Automated exposure control, adjustment of the mA and/o r kV according to patient size, and/or iterative reconstruction. Unless otherwise specified, incidental findings do not require dedicated imaging follow-up. [id number]. COMPARISON: 12/13/2022 FINDINGS: LOWER CHEST: Mild circumferential thickening distal esophagus. LIVER: Normal in size and contour. No focal lesion. GALLBLADDER/BILE DUCT: No biliary ductal dilatation.? PANCREAS: No significant abnormality. SPLEEN: Normal size. No focal lesion. ADRENALS: Normal; no mass. KIDNEYS AND URETERS: Normal size and contour. No hydronephrosis. GASTROINTESTINAL TRACT: Stomach is non-dilated. Small bowel has normal course and caliber. No colonic wall thickening or pericolonic inflammatory changes. Small fat-containing umbilical hernia. Normal appendix. Pamela-en-Y gastric bypass PERITONEUM: No ascites. LYMPH NODES: No lymphadenopathy. ABDOMINAL AORTA AND OTHER VESSELS: Normal caliber aorta and IVC. URINARY BLADDER: Normal contour. REPRODUCTIVE ORGANS: No pathologic process MUSCULOSKELETAL: No acute or suspicious osseous abnormality. ADDITIONAL FINDINGS: None. IMPRESSION: No acute or significant abnormalities seen in the abdomen or pelvis. Normal appendix.
--- NOTE | 2024-07-14 21:56 | EDPHYS ---
Physician Documentation [facility] Name: Josefa Michel Age: 49 yrs Sex: Female : 1975 Arrival Date: 07/14/2024 Time: 17:45 Bed 7 Private MD: ED Physician Bill Mendez HPI: 07/14 18:05 This 49 yrs old Female presents to ER via Ambulatory with complaints of Low cp Blood Sugar. 18:05 Onset: The symptoms/episode began/occurred today. cp 18:05 The patient or guardian reports hypoglycemia, that was potentially precipitated by cp unknown. 18:05 Patient reports recording blood sugar level in the 40's today. Took glucagon to raise cp blood sugar but only worked temporary. Patient prescribed Mounjaro injections for DM and weight loss with past surgical history of gastric sleeve and bypass surgery. Reports last Mounjaro injection was this past Monday and was 2.5 mg. MANAGER PHARMACEUTICAL: 22:09 unknown al5 Historical: - Allergies: 17:50 No Known Allergies; ll1 - PMHx: 17:50 diabetes mellitus ; resolved; Hypercholesterolemia; Hypertensive disorder; ll1 - PSHx: 17:50 gastric sleeve and bypass; ll1 - Immunization history:: Adult Immunizations up to date. - Infectious Disease History:: Denies. - Social history:: Smoking status: Patient denies any tobacco usage or history of. ROS: 18:10 Constitutional: Negative for body aches, chills, fever, poor PO intake, cp 18:10 Eyes: Negative for injury, pain, redness, and discharge, cp 18:10 ENT: Negative for drainage from ear(s), ear pain, sore throat, difficulty swallowing, difficulty handling secretions, 18:10 Cardiovascular: Negative for chest pain, edema, palpitations, 18:10 Respiratory: Negative for cough, shortness of breath, wheezing, 18:10 Abdomen/GI: Negative for abdominal pain, vomiting, diarrhea, constipation, 18:10 : Negative for urinary symptoms, 18:10 Neuro: Negative for altered mental status, dizziness, headache, numbness, syncope, weakness, 18:10 All other systems are negative, Exam: 18:15 Constitutional: The patient appears in no acute distress, alert, awake, cp non-diaphoretic, non-toxic, well developed, well nourished, overweight 18:15 Head/Face: Normocephalic, atraumatic. cp 18:15 Eyes: Periorbital structures: appear normal, Conjunctiva: normal, no exudate, no injection, Sclera: no appreciated abnormality, Lids and lashes: appear normal, bilaterally, 18:15 ENT: External ear(s): are unremarkable, Nose: is normal, Mouth: Lips: moist, Oral mucosa: moist, Posterior pharynx: Airway: no evidence of obstruction, patent, 18:15 Chest/axilla: Inspection: normal, 18:15 Cardiovascular: Rate: normal, Rhythm: regular, 18:15 Respiratory: the patient does not display signs of respiratory distress, Respirations: normal, no use of accessory muscles, no retractions, labored breathing, is not present, Breath sounds: are clear throughout, no decreased breath sounds, no stridor, no wheezing, 18:15 Abdomen/GI: Inspection: abdomen appears normal, Palpation: abdomen is soft and non-tender, in all quadrants, 18:15 Back: CVA tenderness, is absent, 18:15 Skin: cellulitis, is not appreciated, no rash present. 18:15 Neuro: Orientation: to person, place \T\ time. Mentation: is normal, Cerebellar function: is grossly normal, Motor: moves all fours, strength is normal, Sensation: is normal, Gait: is steady, at a normal pace, without difficulty, 18:25 ECG was reviewed by the Attending Physician. cp Vital Signs: 18:01 BP 148 / 70; Pulse 81; Resp 16; Pulse Ox 98% on R/A; iw 19:00 BP 123 / 57; Pulse 71; Resp 16; Temp 98.5; Pulse Ox 96% on R/A; Weight 91.63 kg; Height al5 5 ft. 1 in. ; 20:00 BP 100 / 65; Pulse 66; Resp 17; Pulse Ox 98% on R/A; al5 22:10 BP 136 / 72; Pulse 65; Resp 18; Pulse Ox 98% on R/A; al5 19:00 Body Mass Index 38.17 (91.63 kg, 154.94 cm) al5 MDM: 17:52 Medical Screening Exam initiated cp 19:00 Differential diagnosis: Pearl's syndrome, diabetes insipidus, DKA, hyperglycemia, cp hypoglycemic episode, hypothyroidism, thyroid storm, medication reaction. 21:55 Data reviewed: vital signs, nurses notes, lab test result(s), EKG, radiologic studies, cp CT scan, plain films, and as a result, I will discharge patient. 21:55 Consideration of Admission/Observation Escalation of care including cp admission/observation considered. I considered the following discharge prescriptions or medication management in the emergency department Medications were administered in the Emergency Department. See MAR. Care significantly affected by the following chronic conditions: Diabetes, Hypertension. Counseling: I had a detailed discussion with the patient and/or guardian regarding the historical points, exam findings, and any diagnostic results supporting the discharge/admit diagnosis, lab results, radiology results, the need for outpatient follow up, for definitive care, primary chief substation operator, to return to the emergency department if symptoms worsen or persist or if there are any questions or concerns that arise at home. Response to treatment: the patient's symptoms have markedly improved after treatment, VSS, blood glucose stable. Will discharge to home for continued monitoring. 07/14 18:00 Order name: Basic Metabolic Panel; Complete Time: 18:47 cp 07/14 18:48 Interpretation: Normal except: CL 111; GLUC 68. cp 07/14 18:00 Order name: CBC with Diff; Complete Time: 18:47 cp 10 18:47 Interpretation: Normal except: HGB 11.0; HCT 33.5; MCV 77.3; MCH 25.4; RDW 17.1. cp 07/14 18:00 Order name: LFT's; Complete Time: 18:47 cp 07/14 18:48 Interpretation: Normal except: ALK 128; IBILI, CALC 0.1; GLOB 3.7; A/G 1.0. cp 07/14 18:00 Order name: Magnesium; Complete Time: 18:47 cp 07/14 18:00 Order name: Troponin HS; Complete Time: 18:47 cp 07/14 18:00 Order name: Urinalysis W/Microscopic; Complete Time: 18:51 cp 07/14 18:51 Interpretation: Normal except: UCLA Turbid; UBLD Trace; BYST Trace. cp 07/14 18:00 Order name: Test, Urine; Complete Time: 20:08 cp 07/14 18:00 Order name: Lipase; Complete Time: 18:47 cp 07/14 18:22 Order name: Glucose, Ancillary Testing; Complete Time: 18:27 EDMS 07/14 18:27 Interpretation: Reviewed. cp 07/14 18:50 Order name: Cortisol; Complete Time: 21:59 cp 07/14 18:50 Order name: TSH cp 07/14 18:50 Order name: T3 Free cp 07/14 18:50 Order name: T4,Total cp 07/14 20:38 Order name: Glucose, Ancillary Testing; Complete Time: 20:48 EDMS 07/14 22:04 Order name: Glucose, Ancillary Testing EDMS 07/14 18:00 Order name: XRAY Chest (1 view); Complete Time: 18:47 cp 07/14 18:48 Interpretation: Report review. cp 07/14 20:08 Order name: CT Abd/Pelvis - IV Contrast Only; Complete Time: 20:48 cp 07/14 20:49 Interpretation: Report reviewed. cp 07/14 18:00 Order name: Cardiac monitoring; Complete Time: 18:32 cp 07/14 18:00 Order name: EKG - Nurse/Tech; Complete Time: 18:32 cp 07/14 18:00 Order name: IV Saline Lock; Complete Time: 18:32 cp 07/14 18:00 Order name: Labs collected and sent; Complete Time: 18:32 cp 07/14 18:00 Order name: O2 Per Protocol; Complete Time: 18:32 cp 07/14 18:00 Order name: O2 Sat Monitoring; Complete Time: 18:32 cp 07/14 18:28 Order name: PO challenge: sandwich and drink; Complete Time: 18:32 cp EC:25 Rate is 73 beats/min. Rhythm is regular. IN interval is normal. QRS interval is normal. cp QT interval is normal. T waves are Inverted in lead aVR. Interpreted by me. Reviewed by me. Administered Medications: 20:01 Drug: Solu-CORTEF IVP 100 mg IVP once Route: IVP; Site: right antecubital; al5 20:19 Follow up: Response: No adverse reaction al5 Point of Care Testing: Blood Glucose: 20:27 Blood Glucose: 99 mg/dL; al5 Ranges: Critical Glucose Levels:Adult <50 mg/dl or >400 mg/dl <40 mg/dl or >180 mg/dl Disposition Summary: 07/14/24 21:55 Discharge Ordered Notes: Location: Home cp Problem: new cp Symptoms: have improved cp Condition: Stable cp Diagnosis - Diabetes mellitus due to underlying condition with hypoglycemia cp Followup: cp - With: Private Physician - When: 1 - 2 days - Reason: Recheck today's complaints Discharge Instructions: - Discharge Summary Sheet cp - Hypoglycemia cp - Blood Glucose Monitoring, Adult cp Forms: - Medication Reconciliation Form cp - Antibiotic Education cp - Prescription Opioid Use cp - Patient Portal Instructions cp - Leadership Thank You Letter cp Prescriptions: - glucagon 1 mg/0.2 mL Subcutaneous Auto-Injector - inject 0.5 milligram SUBCUTANEOUS route once may repeat once after 15 minutes cp if no response; 5 unit; Refills: 0, Product Selection Permitted Signatures: Dispatcher [employer] EDMS Bill Conti PA PA cp Sharonda Erwin RN RN ll1 Tasia Goode RN RN al5 Corrections: (The following items were deleted from the chart) 18:01 18:01 BASIC METABOLIC PANEL+C.LAB.BRZ ordered. EDMS EDMS 18:01 18:01 CBC+H.LAB.BRZ ordered. EDMS EDMS 18:01 18:01 HEPATIC FUNCTION+C.LAB.BRZ ordered. EDMS EDMS 18:01 18:01 MAGNESIUM+C.LAB.BRZ ordered. EDMS EDMS 18:01 18:01 Troponin High Sensitivity+C.LAB.BRZ ordered. EDMS EDMS 18:01 18:01 Urinalysis W/Microscopic+U.LAB.BRZ ordered. EDMS EDMS 18:01 18:01 Test, Urine+UC.LAB.BRZ ordered. EDMS EDMS 18:01 18:01 LIPASE+C.LAB.BRZ ordered. EDMS EDMS 18:01 18:01 Chest Single View+RAD.RAD.BRZ ordered. EDMS EDMS 18:37 18:00 Accucheck Blood Glucose ordered. cp db
--- NOTE | 2024-07-14 21:56 | ER ---
Nurse's Notes [facility] Name: Josefa Michel Age: 49 yrs Sex: Female : 1975 Arrival Date: 07/14/2024 Time: 17:45 Bed 7 Private MD: Diagnosis: Diabetes mellitus due to underlying condition with hypoglycemia Presentation: 07/14 17:58 Chief complaint: Patient states: her blood sugar won't stay up , it drops into the 50's iw then 60's and even to 40's , she eats to bring it up into the 120's then it drops again , is on mounjaro for weight loss , last injection was Monday. Coronavirus screen: At this time, the client does not indicate any symptoms associated with coronavirus-19. Ebola Screen: No symptoms or risks identified at this time. Initial Sepsis Screen: Does the patient meet any 2 criteria? No. Patient's initial sepsis screen is negative. Does the patient have a suspected source of infection? No. Patient's initial sepsis screen is negative. Risk Assessment: Do you want to hurt yourself or someone else? Patient reports no desire to harm self or others. Onset of symptoms was July 14, 2024. 17:58 Method Of Arrival: Ambulatory iw 17:58 Acuity: DAXA 3 iw INSURANCE BROKER: 22:09 unknown al5 Historical: - Allergies: 17:50 No Known Allergies; ll1 - PMHx: 17:50 diabetes mellitus ; resolved; Hypercholesterolemia; Hypertensive disorder; ll1 - PSHx: 17:50 gastric sleeve and bypass; ll1 - Immunization history:: Adult Immunizations up to date. - Infectious Disease History:: Denies. - Social history:: Smoking status: Patient denies any tobacco usage or history of. Screenin:55 [facility] ED Fall Risk Assessment (Adult) History of falling in the last 3 months, rs5 including since admission No falls in past 3 months (0 pts) Confusion or Disorientation No (0 pts) Intoxicated or Sedated No (0 pts) Impaired Gait No (0 pts) Mobility Assist Device Used No (0 pt) Altered Elimination No (0 pt) Score/Fall Risk Level 0 - 2 = Low Risk Oriented to surroundings, Maintained a safe environment. Abuse screen: Denies threats or abuse. Nutritional screening: No deficits noted. Tuberculosis screening: No symptoms or risk factors identified. Assessment: 17:55 General: Appears in no apparent distress. comfortable, Behavior is calm, cooperative. rs5 17:55 Pain: Denies pain. Neuro: Level of Consciousness is awake, alert, obeys commands, rs5 Oriented to person, place, time, situation. Cardiovascular: Patient's skin is warm and dry. Respiratory: Airway is patent Respiratory effort is even, unlabored, Respiratory pattern is regular, symmetrical. GI: Abdomen is round non-distended, Abd is soft and non tender X 4 quads. : No signs and/or symptoms were reported regarding the genitourinary system. EENT: No signs and/or symptoms were reported regarding the EENT system. Derm: Skin is intact, Skin is pink, warm \T\ dry. Musculoskeletal: Range of motion: intact in all extremities. 18:29 Reassessment: Patient and/or family updated on plan of care and expected duration. Pain rs5 level reassessed. Patient is alert, oriented x 3, equal unlabored respirations, skin warm/dry/pink. 19:50 General: Appears in no apparent distress. comfortable, Behavior is calm, cooperative. al5 Pain: Denies pain. Neuro: Level of Consciousness is awake, alert, obeys commands, Oriented to person, place, time, situation. Cardiovascular: Patient's skin is warm and dry. Respiratory: Airway is patent Respiratory effort is even, unlabored, Respiratory pattern is regular, symmetrical. GI: Abdomen is round non-distended, Abd is soft and non tender X 4 quads. : No signs and/or symptoms were reported regarding the genitourinary system. EENT: No signs and/or symptoms were reported regarding the EENT system. Derm: Skin is intact, Skin is pink, warm \T\ dry. normal. Musculoskeletal: No signs and/or symptoms reported regarding the musculoskeletal system. 21:18 Reassessment: Patient appears in no apparent distress at this time. No changes from al5 previously documented assessment. Patient and/or family updated on plan of care and expected duration. Pain level reassessed. Patient is alert, oriented x 3, equal unlabored respirations, skin warm/dry/pink. 22:10 Reassessment: Patient appears in no apparent distress at this time. No changes from al5 previously documented assessment. Patient and/or family updated on plan of care and expected duration. Pain level reassessed. Patient is alert, oriented x 3, equal unlabored respirations, skin warm/dry/pink. Vital Signs: 18:01 BP 148 / 70; Pulse 81; Resp 16; Pulse Ox 98% on R/A; iw 19:00 BP 123 / 57; Pulse 71; Resp 16; Temp 98.5; Pulse Ox 96% on R/A; Weight 91.63 kg; Height al5 5 ft. 1 in. ; 20:00 BP 100 / 65; Pulse 66; Resp 17; Pulse Ox 98% on R/A; al5 22:10 BP 136 / 72; Pulse 65; Resp 18; Pulse Ox 98% on R/A; al5 19:00 Body Mass Index 38.17 (91.63 kg, 154.94 cm) al5 ED Course: 17:48 Patient arrived in ED. im 17:50 Arm band placed on Patient placed in an exam room, on a stretcher. ll1 17:52 Bill Conti PA is PHCP. cp 17:52 Bill Mendez MD is Attending Physician. cp 17:55 Patient has correct armband on for positive identification. Bed in low position. Call rs5 light in reach. Side rails up X2. 18:00 Triage completed. iw 18:01 Shane Ulloa, RN is Primary Nurse. rs5 18:01 Inserted saline lock: 20 gauge in right antecubital area, using aseptic technique. rs5 18:01 No provider procedures requiring assistance completed. rs5 18:24 XRAY Chest (1 view) In Process Unspecified. EDMS 20:08 Provided Education on: plan of care, medications. al5 20:33 CT Abd/Pelvis - IV Contrast Only In Process Unspecified. EDMS 22:09 IV discontinued, intact, bleeding controlled, No redness/swelling at site. Pressure al5 dressing applied. Administered Medications: 20:01 Drug: Solu-CORTEF IVP 100 mg IVP once Route: IVP; Site: right antecubital; al5 20:19 Follow up: Response: No adverse reaction al5 Medication: 18:30 VIS not applicable for this client. rs5 Point of Care Testing: Blood Glucose: 20:27 Blood Glucose: 99 mg/dL; al5 Ranges: Outcome: 21:55 Discharge ordered by . cp 22:11 Discharged to home ambulatory, with family, al5 22:11 Condition: good 22:11 Discharge instructions given to patient, family, Instructed on discharge instructions, follow up and referral plans. medication usage, Demonstrated understanding of instructions, follow-up care, medications, Prescriptions given X 22:11 Patient left the ED. al5 Signatures: Dispatcher [employer] EDMS Camilla Srivastava RN RN iw Bill Conti PA PA cp Lewis, Lynsay RN RN ll1 Shane Ulloa RN RN rs5 Sofi Arana Amanda, RN RN al5
[2024-07-14 23:44] LABS: T3 Free 2.61 pg/mL (2.18-3.98); T4,Total 5.8 ug/dL (4.8-13.9); Thyroid Stimulating Hormone 1.88 uIU/mL (0.358-3.740)
[2024-07-15 03:30] VITALS: TEMP 98.5
[2024-07-15 03:36] VITALS: O2SAT 98
[2024-07-15 03:37] VITALS: BP 136/72
--- NOTE | 2024-07-16 12:56 | EKG ---
Test Date: 2024-07-14 Test Time: 18:18:37 [employer]ofer Assistant: CAROLINE MEASUREMENT RESULTS: Intervals: Rate: 73 OH: 142 QRSD: 86 QT: 392 QTc: 431 [place]: P: 51 OH: 142 QRS: 42 T: 36 INTERPRETIVE STATEMENTS: Normal sinus rhythm Normal ECG Compared to ECG 06/12/2021 13:46:20 Sinus tachycardia no longer present ST (T wave) deviation no longer present Electronically Signed On 07-16-24 12:51:03 CDT by Isaias Trujillo
== END 2024-07-14 22:11 | disposition home or self-care (01) ==
LOC: ER 17:45
DX: E11.649 Type 2 diabetes mellitus with hypoglycemia without coma (principal); I10 Essential (primary) hypertension; Z98.84 Bariatric surgery status
CPT/HCPCS: 93005; 85025; 81001; 80048; 36415; 83735; 81025; 82947 ×3; 80076; 84436; 84443; 84484; 84481; 83690; 82533; 74177; 71045; 96374; 99284; Q9967; J1720